=== PATIENT | female | born 1930 | race Caucasian/White ===

== ENCOUNTER 2016-08-10 17:53 | Emergency (ER) | payer BC ==
[2016-08-10 18:16] VITALS: TEMP 97.1; BMI 13.6
--- NOTE | 2016-08-10 19:23 | PDOC ---
History of Present Illness <Laisha Ortiz - Last Filed: 08/10/16 22:22> - General History Source: Patient, Family, Old Records Exam Limitations: No Limitations - History of Present Illness Initial Comments: 08/10/16 20:09 The patient is a 85 year old female, accompanied by daughter, with a significant past medical history of hypertension, COPD, dementia, diverticulosis , thyroid disease, afib, depression, and anxiety, who presents to the emergency department today for further evaluation of hallucinations for one day. The daughter reports that the patient has been experiencing hallucinations for 9 days. The daughter states that today, she took the patient out for a walk today and the patient refused to go home because there are men and babies who live in her house. The patient stated that she is aware that there are no men who live in her house with her. As per daughter, patient lives alone and is cared for by herself and her sister. The daughter states that her mother went to Dr. Guerrero on Thursday to have a urinary analysis and to check for a UTI but has not yet received the results. The daughter notes that the hallucinations began around the the patients dose of klonopin was increased. <Oscar Arroyo - Last Filed: 08/10/16 23:08> - General Chief Complaint: Psychiatric Stated Complaint: MENTAL STATUS Time Seen by Provider: 08/10/16 19:23 Past History - Past Medical History COPD: Yes (asthma) GI Disorders: Yes (diverticulosis) HTN: Yes Thyroid Disease: Yes - Surgical History Cholecystectomy: Yes - Psycho/Social/Smoking Cessation Hx Anxiety: No Suicidal Ideation: No Smoking Status: No Smoking History: Former smoker Have you smoked in the past 12 months: No Number of Cigarettes Smoked Daily: 0 If you are a former smoker, when did you quit?: 23 years ago Information on smoking cessation initiated: No Hx Alcohol Use: No Drug/Substance Use Hx: No Substance Use Type: None Hx Substance Use Treatment: No <Laisha Ortiz - Last Filed: 08/10/16 22:22> <Oscar Arroyo - Last Filed: 08/10/16 23:08> - Past Medical History Allergies/Adverse Reactions: Allergies Allergy/AdvReac Type Severity Reaction Status Date / Time Sulfa (Sulfonamide Allergy Mild diarrhea Verified 08/10/16 18:13 Antibiotics) Home Medications: Ambulatory Orders Furosemide [Lasix -] 40 mg PO DAILY 01/11/14 Lamotrigine [Lamictal] 75 mg PO DAILY 01/11/14 Paroxetine HCl [Paxil -] 40 mg PO DAILY 01/11/14 Valsartan [Diovan] 40 mg PO DAILY 01/11/14 Clonazepam [Klonopin] 0.5 mg PO TID 09/05/15 Pantoprazole Sodium [Protonix] 40 mg PO DAILY 09/05/15 Atorvastatin Ca [Lipitor] 10 mg PO HS #30 tablet 09/07/15 Memantine HCl [Namenda Xr] 14 mg PO DAILY 08/10/16 Risperidone [Risperdal] 0.25 mg PO DAILY #14 tablet 08/10/16 Review of Systems - Review of Systems Able to Perform ROS?: Yes Comments:: 08/10/16 20:09 GENERAL/CONSTITUTIONAL: No fever or chills. No weakness. HEAD, EYES, EARS, NOSE AND THROAT: No change in vision. No ear pain or discharge. No sore throat. CARDIOVASCULAR: No chest pain or shortness of breath. RESPIRATORY: No cough, wheezing, or hemoptysis. GASTROINTESTINAL: No nausea, vomiting, diarrhea or constipation. GENITOURINARY: No dysuria, frequency, or change in urination. MUSCULOSKELETAL: No joint or muscle swelling or pain. No neck or back pain. SKIN: No rash NEUROLOGIC: (+) Hallucinations. No headache, vertigo, loss of consciousness, or change in strength/sensation. ENDOCRINE: No increased thirst. No abnormal weight change. HEMATOLOGIC/LYMPHATIC: No anemia, easy bleeding, or history of blood clots. ALLERGIC/IMMUNOLOGIC: No hives or skin allergy. <Oscar Arroyo - Last Filed: 08/10/16 23:08> *Physical Exam - Vital Signs Last Vital Signs Temp Pulse Resp BP Pulse Ox 97.1 F L 87 16 177/83 91 L 08/10/16 18:07 08/10/16 18:07 08/10/16 18:07 08/10/16 18:07 08/10/16 18:07 <Laisha Ortiz - Last Filed: 08/10/16 22:22> - Vital Signs Last Vital Signs Temp Pulse Resp BP Pulse Ox 97.1 F L 87 16 177/83 91 L 08/10/16 18:07 08/10/16 18:07 08/10/16 18:07 08/10/16 18:07 08/10/16 18:07 - Physical Exam Comments: 08/10/16 20:10 GENERAL: Awake, alert, and fully oriented, in no acute distress HEAD: No signs of trauma EYES: PERRLA, EOMI, sclera anicteric, conjunctiva clear ENT: (+) Mass on pallet. Auricles normal inspection, hearing grossly normal, nares patent, oropharynx clear without exudates. Moist mucosa NECK/BACK: (+) severe kyphosis Normal ROM, supple, no lymphadenopathy, JVD, or masses LUNGS: Breath sounds equal, clear to auscultation bilaterally. No wheezes, and no crackles HEART: Irregularly irregular, normal S1 and S2, no murmurs, rubs or gallops ABDOMEN: Soft, nontender, normoactive bowel sounds. No guarding, no rebound. No masses EXTREMITIES: (+) bilateral pitting edema up to her knees. Normal range of motion , No clubbing or cyanosis. No cords or tenderness NEUROLOGICAL: Cranial nerves II through XII grossly intact. Normal speech, normal gait SKIN: (+) Bilateral lower extremity chronic skin changes, Warm, Dry, normal turgor. <Oscar Arroyo - Last Filed: 08/10/16 23:08> Heart Score/ECG Review - ECG Impressions Comment:: 08/10/16 20:49 1. EKG Impression: Sinus rhythm with premature atrial complexes in a pattern of bigeminy. Voltage criteria for left ventricular hypertrophy. Cannot rule out septal infarct, age undetermined. T wave abnormality , consider lateral ischemia. Abnormal ECG. <Oscar Arroyo - Last Filed: 08/10/16 23:08> ED Treatment Course - LABORATORY CBC & Chemistry Diagram: 08/10/16 19:40 08/10/16 19:40 <Laisha Ortiz - Last Filed: 08/10/16 22:22> - LABORATORY CBC & Chemistry Diagram: 08/10/16 19:40 08/10/16 19:40 - ADDITIONAL ORDERS Additional order review: Laboratory Results 08/10/16 19:17 Urine Color Straw Urine Appearance Clear Urine pH 6.0 Ur Specific [place] 1.010 Urine Protein Negative Urine Glucose (UA) Negative Urine Ketones Negative Urine Blood Negative Urine Nitrite Negative Urine Bilirubin Negative Urine Urobilinogen Negative Ur Leukocyte Esterase Trace H Urine RBC 2 Urine WBC 3 Ur Epithelial Cells Rare Hyaline Casts 11 Urine Mucus Rare 08/10/16 19:40 RBC 3.72 MCV 99.8 H MCHC 33.0 RDW 12.9 MPV 8.6 D Neutrophils % 75.4 D Lymphocytes % 15.4 D Monocytes % 8.2 Eosinophils % 0.5 Basophils % 0.5 - RADIOLOGY Radiology Studies Ordered: 08/10/16 20:[address] Head Impression: No acute brain parenchymal abnormality. No hemorrhage, mass or acute territorial infarct. Scattered incidental dural calcifications. Age- related involutional changes and chronic small vessel ischemic changes. Torus palatinus incidentally noted. <Oscar Arroyo - Last Filed: 08/10/16 23:08> Medical Decision Making - Medical Decision Making 08/10/16 20:15 Pt comes because she is seeing people in her home. Perhaps this is , or perhaps this is related to her COPD/hypoxia; or it could be indicative of a CVA or mass in brain, or it could be thyroid related. Pt is afebrile, and she has no signs o infection or sepsis. According to her daughter she has no hallucination of people in her daughter's home or outdoors; only in her home when she is alone. Pt will be worked up. CBC and UA are normal so far. CXR is normal. EKG is unchaged from previous. HEAD CT and chem is pending. I will discuss all results with her PMD Yolanda, once everything is back. 08/10/16 21:02 Case d/w Dr. Joshi, who is setting up and appointment tomorrow with Dr. Guerrero for the patient. He is asking me to send her home with ripserdal 0.25mg BID x 14 days. Pt i sonly 30kg, so I will prescribe her risperdale 0.25 daily x 14 days. Pt will be given a dose in the ER. 08/10/16 22:22 Patient Name: Precious Simpson THIS IS A PRELIMINARY REPORT FROM IMAGING ACCESS NURSE IMAGES: 77 EXAM DATE AND TIME: 2016-08-10 21:09:18.0 EXAM: CT HEAD WITHOUT CONTRAST No acute brain parenchymal abnormality. No hemorrhage, mass or acute territorial infarct. Scattered incidental dural calcifications. Age- related involutional changes and chronic small vessel ischemic changes. Torus palatinus incidentally noted. Mucus retention cysts left maxillary sinus. Visualized mastoid air cells clear. THIS DOCUMENT HAS BEEN ELECTRONICALLY SIGNED <Laisha Ortiz - Last Filed: 08/10/16 22:22> - Medical Decision Making 08/10/16 20:[address] Guerrero, Dr. Joshi is cover. Case discussed. <Oscar Arroyo - Last Filed: 08/10/16 23:08> *DC/Admit/Observation/Transfer - Discharge Dispostion Admit: No <Laisha Ortiz - Last Filed: 08/10/16 22:22> - Attestations Scribe Attestion: 08/10/16 20:10 Documentation prepared by Oscar Arroyo, acting as biomedical equipment specialist for Laisha Ortiz MD/DO. <Oscar Arroyo - Last Filed: 08/10/16 23:08> Diagnosis at time of Disposition: Sund - Discharge Dispostion Disposition: HOME Condition at time of disposition: Stable - Prescriptions Prescriptions: Risperidone [Risperdal] 0.25 mg PO DAILY #14 tablet - Referrals Referrals: Lisa Guerrero MD [Primary Care Provider] - - Patient Instructions Printed Discharge Instructions: Dementia, Sleeping Aids for Seniors and Seniors With Dementia: Melatonin and Zolpidem
[2016-08-10 19:28] LABS: URINE APPEARANCE CLEAR; URINE BILIRUBIN NEGATIVE (NEGATIVE); URINE BLOOD NEGATIVE (NEGATIVE); URINE COLOR STRAW; URINE GLUCOSE (UA) NEGATIVE (NEGATIVE); URINE KETONE NEGATIVE (NEGATIVE); URINE LEUK ESTERASE TRACE (NEGATIVE); URINE NITRITE NEGATIVE (NEGATIVE); URINE PROTEIN NEGATIVE (NEGATIVE); URINE UROBILINOGEN NEGATIVE E.U./dl (0.2-1.0)
[2016-08-10 19:29] LABS: URINE HYALINE CAST 11 /lpf; URINE MUCUS RARE; URINE RBC 2 /hpf (0-3); URINE WBC 3 /hpf (3-5)
[2016-08-10 19:53] LABS: BASOPHIL 0.5 % (0-2.0); EOSINOPHIL 0.5 % (0-4.5); MEAN CELL VOLUME 99.8 fl (80-96); MEAN PLT VOLUME 8.6 fl (7.5-11.1); NEUTROPHILS 75.4 % (42.8-82.8); PLATELET COUNT 187 K/MM3 (134-434); RDW 12.9 % (11.6-15.6); WHITE BLOOD COUNT 5.3 K/mm3 (4.0-10.0)
[2016-08-10 20:17] LABS: ALBUMIN 3.4 g/dl (3.4-5.0); ANION GAP 7 (8-16); BILIRUBIN,TOTAL 0.6 mg/dL (0.2-1.0); CALCIUM 8.7 mg/dL (8.5-10.1); CO2 40 mmol/L (21-32); CREATININE 0.6 mg/dL (0.55-1.02); GLUCOSE,RANDOM 112 mg/dL (74-106); SGPT/ALT 21 U/L (12-78); TOT PROT 7.1 g/dl (6.4-8.2)
[2016-08-10 20:25] LABS: ALK PHOS 122 U/L (45-117); THYROID STIMULATING HORMONE 4.56 uIU/ml (0.358-3.74); TROPONIN I < 0.02 ng/ml (0.00-0.05)
[2016-08-10 20:28] LABS: SGOT/AST 24 U/L (15-37)
[2016-08-10] MEDS ORDERED: risperiDONE 0.25 MG TABLET (FP) PO ONE (21:01)
[2016-08-10] MEDS ORDERED: risperiDONE 0.5 MG TABLET (FP) ONE (21:12)
[2016-08-10 22:42] VITALS: BP 129/66; PULSE 80
--- NOTE | 2016-08-11 11:19 | EKG ---
Test Reason : Blood Pressure : / mmHG Vent. Rate : 070 BPM Atrial Rate : 070 BPM P-R Int : 140 ms QRS Dur : 084 ms QT Int : 400 ms P-R-T Axes : 075 026 164 degrees QTc Int : 432 ms SINUS RHYTHM WITH PREMATURE ATRIAL COMPLEXES VOLTAGE CRITERIA FOR LEFT VENTRICULAR HYPERTROPHY CANNOT RULE OUT SEPTAL INFARCT , AGE UNDETERMINED ABNORMAL ECG WHEN COMPARED WITH ECG OF 06-SEP-2015 09:10, T WAVE ABNORMALITY, CONSIDER ANTEROLATERAL ISCHEMIA HAS IMPROVED Confirmed by KAL YORK MD ([id number]) on 08/11/2016 11:18:26 AM Referred By: Confirmed By:KAL YORK MD
== END 2016-08-10 22:42 | disposition home or self-care (01) ==
LOC: SUPCPDRO 17:53 → JER 17:53
DX: F05 Delirium due to known physiological condition (principal); I10 Essential (primary) hypertension; J45.909 Unspecified asthma, uncomplicated; J44.9 Chronic obstructive pulmonary disease, unspecified; F41.8 Other specified anxiety disorders; I48.91 Unspecified atrial fibrillation; R60.0 Localized edema; M40.299 Other kyphosis, site unspecified; Z87.891 Personal history of nicotine dependence
CPT/HCPCS: 36415; 70450-TC; 71010-TC; 80053; 81003; 81015; 82550; 83880; 84443; 84484; 85025; 93005; 93010; 99282-25